=== PATIENT | male | born 1945 | race Caucasian/White ===

== ENCOUNTER 2017-01-21 06:43 | Day surgery (SDC) | payer MEDICARE, BC ==
[~2017-01-21] VITALS: Ht 177.8 cm; Wt 97.3 kg
[~2017-01-21 06:43] MED LIST: ATEN50TA PO; ATOR10TA65 PO; FURO-109 PO; LEVO50TA83 PO; NIFE30TA43 PO; POTA8CAP PO
[2017-01-21 07:46] VITALS: Ht 177.8 cm; Wt 97.3 kg
[2017-01-21] MEDS ORDERED: LYR75 PO (07:51)
[2017-01-21] MEDS ORDERED: BENA10TA48 PO (07:51)
[2017-01-21] MEDS ORDERED: LIDOCAINE 2% (SDV) 5 ML INJ ONE (09:20)
[2017-01-21] MEDS ORDERED: PROPOFOL 20 ML ONE (11:25)
[2017-01-21 11:29] VITALS: BP 129/70; PULSE 72; RESP 18
--- NOTE | 2017-01-21 11:55 | OPPN ---
Date/Time of Note Date/Time of Note DATE: 01/21/17 TIME: 11:50 Operative Report Free Text/Dictation no assists Preoperative Diagnosis screening Postoperative Diagnosis sigmoid anastomosis Operation/Procedure Performed colonoscopy and biopsy Provider: JOVAN HAILE MD Anesthesia Type: MAC Estimated blood loss: none Transfusion Required: no Specimens rectosigmoid bx Grafts/Implants: none Complications: no JOVAN HAILE MD Jan 21, 2017 11:55
[2017-01-21 12:10] VITALS: BP 100/57; PULSE 60; RESP 14
--- NOTE | 2017-01-22 07:15 | GILP ---
DATE OF PROCEDURE: 01/21/2017 PROCEDURE PERFORMED: Colonoscopy to the cecum. INDICATIONS: Screening. PROCEDURE SUMMARY: The patient was placed in the left lateral decubitus position. The anesthesiologist is present for monitored anesthesia and conscious sedation. While he was lying in the left lateral decubitus position, the colonoscope was easily advanced to the cecum. The prep was good. There was a sigmoid anastomosis that was seen at the rectus sigmoid. A biopsy was taken of this area to rule out colitis. The procedure was well tolerated. IMPRESSION: Sigmoid anastomosis seen at rectal sigmoid. Biopsy was taken. PLAN: Follow up in the office. sent for pathogens. Dictated By: Tunde Fnin MD /vinay/evens /Document#: [id number]
== END 2017-01-21 15:24 | disposition home or self-care (01) ==
LOC: GIL 06:43
PROVIDERS: ATTEND Internal Medicine
DX: Z12.11 Encounter for screening for malignant neoplasm of colon (principal); D12.5 Benign neoplasm of sigmoid colon; E78.5 Hyperlipidemia, unspecified; I10 Essential (primary) hypertension; E03.9 Hypothyroidism, unspecified
CPT/HCPCS: 87045; 87075; 87177; 88305